=== PATIENT | female | born 1970 | race African-American/Black ===

== ENCOUNTER → 2023-01-10 | Day surgery (SDC) | payer MEDICAID ==
[~2023-01-10] VITALS: Ht 160 cm; Wt 115.7 kg
[~2023-01-10] MED LIST: ACETAMINOPHEN 325MG TABLET PO PRN; APIX5TAB PO; ATOR40TA70 PO; ATROPINE SULFATE 1MG/10ML SYR IV PRN; FENTANYL CITRATE/PF 50MCG/ML 2ML VIAL ONE; FURO80TA87 PO; LIDOCAINE 2% 6ML GLYDO MM ONE; LOSA-413 PO; MIDAZOLAM HCL 5 MG/5 ML VIAL ONE; ONDANSETRON HCL 4MG/2ML INJ IV PRN; SOTA80TA PO; SPIR25TA PO; TETRACAINE/BENZOCAINE/BUTAMBEN 20 GM SPRAY MM ONE
== END | disposition home or self-care (01) ==
LOC: CCL 08:41
PROVIDERS: ATTEND Specialist
DX: I48.20 Chronic atrial fibrillation, unspecified (principal); E78.5 Hyperlipidemia, unspecified; I34.0 Nonrheumatic mitral (valve) insufficiency; G47.33 Obstructive sleep apnea (adult) (pediatric); I10 Essential (primary) hypertension; J44.9 Chronic obstructive pulmonary disease, unspecified; E66.9 Obesity, unspecified; Z86.73 Personal history of transient ischemic attack (TIA), and cerebral infarction without residual deficits; Z87.891 Personal history of nicotine dependence; Z79.899 Other long term (current) drug therapy; Z98.890 Other specified postprocedural states
CPT/HCPCS: 93005; 92960; 93312; J3010; J2250; 99152; 99153; G0500